=== PATIENT | female | born 1990 | race Caucasian/White ===

== ENCOUNTER 2022-07-10 10:38 | Emergency (ER) | payer OTHER ==
[~2022-07-10] VITALS: Ht 170.1 cm; Wt 90.7 kg
[2022-07-10] MEDS ORDERED: CYCLOBENZAPRINE10 MG PO (13:09)
[2022-07-10] MEDS ORDERED: ETODOLAC400 M2 PO (13:09)
== END 2022-07-10 13:15 | disposition home or self-care (01) ==
LOC: ED 10:38
DX: S16.1XXA Strain of muscle, fascia and tendon at neck level, initial encounter (principal); S09.90XA Unspecified injury of head, initial encounter; Z88.0 Allergy status to penicillin; V43.52XA Car driver injured in collision with other type car in traffic accident, initial encounter; Y93.89 Activity, other specified; Y92.89 Other specified places as the place of occurrence of the external cause; Y99.8 Other external cause status